=== PATIENT | female | born 1960 | race Caucasian/White ===

== ENCOUNTER 2025-03-23 20:54 | Emergency (ER) | payer OTHER, SELFPAY ==
[2025-03-23 21:08] VITALS: BP 162/86
[2025-03-23 21:43] VITALS: BP 120/75
[2025-03-23 21:45] VITALS: BMI 38.0
[2025-03-23 21:50] LABS: Hematocrit 40.5 % (37.0-47.0); Hemoglobin 13.8 g/dL (12.0-16.0); Mean Corp Hgb Conc. 34.1 g/dL (33.0-37.0); Mean Corpuscular Volume 83.2 fL (81.0-99.0); Nucleated Red Blood Cells % 0 %; Platelet Count 257 10^3/uL (130-400); Red Cell Dist. Width 13.0 % (11.5-14.5)
[2025-03-23 22:00] VITALS: BP 112/81
[2025-03-23 22:05] LABS: APTT 24.5 Sec (23.4-35.0)
[2025-03-23 22:08] LABS: ALT (SGPT) 39 U/L (0-35); AST (SGOT) 38 U/L (14-36); Albumin 4.9 g/dl (3.5-5.0); Alkaline Phosphatase 107 U/L (38-126); Blood Urea Nitrogen 15 mg/dl (7-17); Calcium 10.0 mg/dl (8.4-10.2); Carbon Dioxide 25 mmol/L (22-30); Chloride 108 mmol/L (98-107); Estimated Creatinine Clearance 47 ml/min; Glucose 91 mg/dl (70-99); Potassium 4.5 mmol/L (3.5-5.1); Sodium 140 mmol/L (135-145); Total Protein 7.4 g/dl (6.3-8.2); Troponin I < 0.012 ng/ml; eGFR 45.92
--- NOTE | 2025-03-23 22:25 | ED.GENMED ---
History of Present Illness
General
Chief Complaint: Cardiac Symptoms
Source: patient
Exam Limitations: none
Time Seen by Provider: 03/23/25 21:49
History of Present Illness
History of Present Illness:
Patient started with what she describes as sharp left-sided chest pain while at rest at about 330 this afternoon. Lasted about 4 hours. Currently resolved. Not exertional. No radiation no shortness of breath no pleuritic pain. Not exertional no
nausea diaphoresis
Past History
Past History
ED Past Medical History: Other (Diverticulosis, elevated hemoglobin A1c, asthma, COPD, CVA, anxiety, A. fib, depression, peptic ulcer, S2 process., RSD, fatty liver, GERD, hyperlipidemia, osteopenia, hypertension, fibromyositis)
ED Past Surgical History: Other
Social History
Tobacco: Former smoker
Review of Systems
Review of Systems
All Other Systems: Not applicable
Constitutional: Denies fever or chills
Respiratory: Denies cough, hemoptysis or trouble breathing
ABD/GI: Reports no symptoms
Phy Exam
Physical Exam
Physical Exam:
GENERAL: Alert and oriented in no apparent distress
EYE: Orbits normal.
NECK: Supple, no significant adenopathy.
ENT: Pharynx without erythema
CARDIAC: Regular rate and rhythm without any obvious murmurs.
LUNGS: Clear breath sounds,normal
ABDOMEN: Soft, without focal tenderness or distention
NEUROLOGICAL: Alert and oriented , grossly non-focal
SKIN: Warm and dry, no rash or lesion, no discoloration, skin intact.
MUSCULOSKELETAL: No edema,no deformity.Good color
PSYCH: Normal and appropriate interaction.
Course
Orders/Labs/Results
Orders:
Orders
03/23/25 21:12
Electrocardiogram (*1) Urgent
Reason for Study: Chest Pain
EKG- Treatment ONCE
03/23/25 21:23
Complete Blood Count/With Diff Urgent
Comprehensive Metabolic Panel Urgent
D-Dimer Urgent
Comment: ADD ON
PTT Urgent
Troponin I Urgent
03/23/25 22:12
CR Chest - 2 Views Urgent
Comment:
Reason For Exam: cp
03/23/25 22:13
Add On- LAB Urgent
Tests Added?: d-dimer
03/23/25 23:48
Electrocardiogram (*1) Stat
Reason for Study: Other
Other Reason for Exam: chest pain
EKG- Treatment ONCE
03/23/25 23:54
Troponin I Urgent
Abnormal Lab Results
03/23/25
21:23
Abs Immat Gran (auto) 0.1 H 10^3/uL
(0-0.05)
Absolute Monos (auto) 1.1 H 10^3/uL
(0.1-0.6)
Monocytes % 11.2 H %
(1.7-9.3)
Chloride 108 H mmol/L
(98-107)
Creatinine 1.3 H mg/dL
(0.6-1.0)
AST 38 H U/L
(14-36)
ALT 39 H U/L
(0-35)
03/23/25 21:23
03/23/25 21:23
Vital Signs
Initial and Last Documented VS:
Initial Vital Signs
Temp Pulse Resp BP Pulse Ox
98.1 F 81 20 162/86 98
03/23/25 21:08 03/23/25 21:08 03/23/25 21:08 03/23/25 21:08 03/23/25 21:08
Last Documented Vital Signs
Temp Pulse Resp BP Pulse Ox
98.1 F 77 13 112/81 97
03/23/25 21:08 03/23/25 22:00 03/23/25 22:00 03/23/25 22:00 03/23/25 22:26
*Pulse Oximetry
SaO2: 97
Oxygen Mode of Delivery: Room air
Patient hypoxic: no
*EKG
Interpreted by ED Provider?: Yes
Interpretation: normal
Comparison EKG: changes noted
Heart Rate: 81
Rate: normal
Rhythm: sinus
[place]: normal axis
Interval: normal interval
QRS Pattern: normal QRS
Ischemia: no ischemia (resolved)
*Critical Care Note
Total Time (30-74mins, 75-104mins- exclusive of procedures): Not Applicable
Update Note
Update Note:
Patient has remained stable and asymptomatic. Repeat troponin negative. Repeat EKG negative. Atypical symptoms. Discharged to follow-up with her field representatives director
ED Attending Note
-
Portions of this chart may have been created with voice recognition software.� Occasional wrong word or��sound alike� substitutions may have occurred due to the inherent limitations of voice recognition software.
Discharge Plan
Departure
Patient Disposition: Home (Routine Discharge)
Date of Disposition: 03/24/25
Time of Disposition: 00:57
Patient with high blood pressure during this ER visit?: Yes
Discharge Problem:
Transient chest pain/resolved, Minimal increase in creatinine
Instructions: Chest Pain (DC), BLOOD PRESSURE
Prescriptions:
No Action
atorvastatin 80 MG tablet
80 mg PO QPM
meloxicam 15 MG tablet
15 mg PO DAILY
clopidogrel 75 MG tablet
75 mg PO DAILY
aspirin 81 MG tablet,delayed release (DR/EC)
81 mg PO DAILY
tramadol 50 MG tablet
50 mg PO BID
Patient Comments:
Tries to not take the second dose.
alprazolam 0.5 MG tablet
0.5 mg PO DAILY
ramipril 2.5 MG capsule
2.5 mg PO DAILY
hydroxyzine HCl 25 MG tablet
50 mg PO HS
alprazolam 2 MG tablet
2 mg PO HS
topiramate 100 MG tablet
100 mg PO TID
dicyclomine 10 MG capsule
10 mg PO BID
cholecalciferol (vitamin D3) [Vitamin D3] 2,000 UNIT capsule
2,000 unit PO DAILY
hydroxyzine HCl 25 MG tablet
25 mg PO TID
pantoprazole 40 MG tablet,delayed release (DR/EC)
40 mg PO DAILY Qty: 30 3RF
Referrals:
[facility], [Other]
[facility] DO [Family Provider, Family Practice] - Follow up in 2-3 days
Activity Restrictions/Additional Instructions:
As we discussed, call your field representatives director Tuesday for close follow-up
Return sooner with recurrence of chest pain
Your creatinine, which is your kidney function is very minimally elevated. This is usually a sign of hydration. Make sure you stay well-hydrated. For completeness have your primary care physician repeat your kidney tests in a week or 2.
Interventions
Interventions:
*Risk Screen - Suicide Last Done: 03/23/25 21:46
*General Assessment Last Done: 03/23/25 21:08
*Neglect/Abuse Screening Last Done: 03/23/25 21:46
*ED- Fall Risk Assessment Last Done: 03/23/25 21:46
*ED COVID-19 Vaccine History Last Done: 03/23/25 21:46
ED- Pulmonary Assessment Last Done: 03/23/25 21:56
ED- Cardiac Assessment Last Done: 03/23/25 21:56
Discharge Date and Time
Print Language: MARTINIQUAIS
[2025-03-23 22:37] LABS: D-Dimer < 0.27 ug/mlFEU (0.00-0.50)
[2025-03-24 00:28] LABS: Troponin I < 0.012 ng/ml
[2025-03-24 01:22] VITALS: BP 111/77
== END 2025-03-24 01:23 | disposition home or self-care (01) ==
LOC: EMR 20:54
PROVIDERS: Student in an Organized Health Care Education/Training Program; EMERGENCY PHYSICIAN Emergency Medicine; FAMILY PHYSICIAN Family Medicine
DX: R07.89 Other chest pain (principal); E78.5 Hyperlipidemia, unspecified; I10 Essential (primary) hypertension; I48.91 Unspecified atrial fibrillation; J44.89 Other specified chronic obstructive pulmonary disease; M79.7 Fibromyalgia; Z86.73 Personal history of transient ischemic attack (TIA), and cerebral infarction without residual deficits; Z87.891 Personal history of nicotine dependence
CPT/HCPCS: 99285; 71046; 80053; 84484; 85025; 85379; 85730; 93005